=== PATIENT | male | born 1935 | race Caucasian/White ===

== ENCOUNTER → 2017-01-01 13:52 | Outpatient (CLI) | payer MEDICARE, OTHER ==
[2017-01-01 16:02] LABS: HEMOGLOBIN A1C 5.9 % (4.8-6.0)
[2017-01-01 20:23] LABS: HIV 1 & 2- RAPID SCREEN NEGATIVE (NEGATIVE)
== END | disposition home or self-care (01) ==
LOC: D.RAD 13:52
PROVIDERS: Student in an Organized Health Care Education/Training Program
DX: R05 Cough (principal)

== ENCOUNTER → 2017-01-01 17:36 | Outpatient (CLI) | payer MEDICARE, OTHER | END | disposition home or self-care (01) | LOC: D.LAB 17:36 | DX: R05 Cough (principal); R06.09 Other forms of dyspnea; B37.0 Candidal stomatitis ==

== ENCOUNTER → 2017-01-06 09:50 | Outpatient (CLI) | payer MEDICARE, OTHER | END | disposition home or self-care (01) | LOC: D.CT 09:50 | DX: R05 Cough (principal) ==